=== PATIENT | male | born 1940 | race Caucasian/White ===

== ENCOUNTER 2017-06-23 16:09 | Emergency (ER) | payer OTHER ==
[~2017-06-23] VITALS: Ht 167.6 cm; Wt 85.0 kg
[2017-06-23] MEDS ORDERED: LOSA50TA PO (16:24)
[2017-06-23] MEDS ORDERED: ATOR20TA15 PO (16:24)
[2017-06-23] MEDS ORDERED: RANI150T PO (16:24)
[2017-06-23] MEDS ORDERED: ASPI81CH37 CHEW (16:24)
[2017-06-23] MEDS ORDERED: CITA20TA4 PO (16:24)
[2017-06-23 16:25] VITALS: BP 209/93; PULSE 64; RESP 16; TEMP 98.7; O2SAT 96
--- NOTE | 2017-06-23 16:44 | PD ---
HPI Chief Complaint: Laceration/Skin Injury Time Seen by Provider: 16:28 Travel History International Travel<30 days: No Contact w/Intl Traveler<30days: No Traveled to known affect area: No History of Present Illness HPI Patient is a 68-year-old male presents emergency department after a fall on outstretched hand leaving the laceration of his right palm. Patient states she was helping at the boat ramp and slipped on the wet dock and lost his footing and fell forward. States he's had a laceration of his right palm. He was told by his friends that he should rinse it in salt water. So he dipped it in the ocean prior to arrival to try and clean. On arrival the patient not complaining of any finger weakness no numbness no tingling. He appears well in no obvious distress. Denies any injury to his head neck back chest abdomen or pelvis. PFSH Past Medical History Anxiety: Yes Depression: Yes High Cholesterol: Yes Diminished Hearing: No GERD: Yes Hypertension: Yes Tetanus Vaccination: Unknown Influenza Vaccination: Yes ?: Not Past Surgical History Other Surgery: Yes (hernia repair) Social History Alcohol Use: Yes (3-4 a day) Tobacco Use: No Allergies-Medications (Allergen,Severity, Reaction): Coded Allergies: clindamycin (Verified Allergy, Severe, 06/23/17) Penicillins (Verified Allergy, Unknown, 06/23/17) Reported Meds & Prescriptions Reported Meds & Active Scripts Active Epipen 2-Kenneth Inj (Epinephrine) 0.3 Mg/0.3 Ml Pfpen 0.3 Mg IM ONCE PRN Zantac (Ranitidine HCl) 150 Mg Tab 150 Mg PO BID Prednisone 50 Mg Tab 50 Mg PO DAILY Levofloxacin 750 Mg Tablet 750 Mg PO DAILY 10 Days [place] (Hydrocodone-Acetaminophen) 5-325 mg Tab 1 Tab PO Q6H PRN Doxycycline Hyclate 100 Mg Cap 100 Mg PO BID 10 Days Reported Losartan (Losartan Potassium) 50 Mg Tab 50 Mg PO DAILY Atorvastatin (Atorvastatin Calcium) 20 Mg Tab 20 Mg PO HS Ranitidine (Ranitidine HCl) 150 Mg Tab 150 Mg PO BID Citalopram (Citalopram Hydrobromide) 20 Mg Tab 20 Mg PO DAILY Aspirin Low Dose (Aspirin) 81 Mg Chew 81 Mg CHEW DAILY Review of Systems Except as stated in HPI: all other systems reviewed are Neg Physical Exam Narrative GENERAL: Well-developed well-nourished no obvious distress SKIN: Focused skin assessment warm/dry. There is a Y-shaped laceration over the patient's right thenar eminence, appears to be total length of approximately 5 cm. Muscle bellies exposed but no tendons. Multiple foreign bodies were removed. HEAD: Atraumatic. Normocephalic. EYES: Pupils equal and round. No scleral icterus. No injection or drainage. ENT: No nasal bleeding or discharge. Mucous membranes pink and moist. NECK: Trachea midline. No JVD. CARDIOVASCULAR: Regular rate and rhythm. No murmur appreciated. RESPIRATORY: No accessory muscle use. Clear to auscultation. Breath sounds equal bilaterally. GASTROINTESTINAL: Abdomen soft, non-tender, nondistended. Hepatic and splenic margins not palpable. MUSCULOSKELETAL: No obvious deformities. No clubbing. No cyanosis. No edema. Cap refill is brisk in all 5 digits of the right hand, flexor and extensor tendons are intact at the PIP and DIP joints as well as flexion extension abduction and adduction opposition of thumb. Wrist is nontender, no midline CT or L-spine tenderness NEUROLOGICAL: Awake and alert. No obvious cranial nerve deficits. Motor grossly within normal limits. Normal speech. PSYCHIATRIC: Appropriate mood and affect; insight and judgment normal. Data Data Last Documented VS Vital Signs Date Time Temp Pulse Resp B/P (MAP) Pulse Ox O2 Delivery O2 Flow Rate FiO2 06/23/17 22:47 62 18 180/88 (118) 99 Room Air 06/23/17 16:25 98.7 Orders Orders Elre-Pis-Turiyi (Booster) Inj (Boostrix (06/23/17 16:45) Lidocaine 1% Inj (50 Ml) (Xylocaine 1% I (06/23/17 16:45) Hand, Complete ([id number]) (06/23/17 ) Clindamycin Inj (Cleocin Inj) (06/23/17 17:15) Levofloxacin (Levaquin) (06/23/17 17:15) Doxycycline (Vibramycin) (06/23/17 17:15) Iv Access Insert/Monitor (06/23/17 17:09) Support Splint (06/23/17 17:46) Fiberglass Splint Forearm Adul (06/23/17 ) Ecg Monitoring (06/23/17 19:43) Oximetry (06/23/17 19:43) Diphenhydramine Inj (Benadryl Inj) (06/23/17 19:45) Methylprednisolone So Succ Inj (Solumedr (06/23/17 19:45) Famotidine Inj (Pepcid Inj) (06/23/17 19:45) Sodium Chloride 0.9% Flush (Ns Flush) (06/23/17 19:45) Ketorolac Inj (Toradol Inj) (06/23/17 20:45) MDM Medical Decision Making Medical Screen Exam Complete: Yes Emergency Medical Condition: Yes Differential Diagnosis Laceration, salt water exposure, retained foreign body, wrist fracture. Narrative Course Patient roomed emergency department, irrigated copiously, will be started on multiple antibiotics. Patient's wound was approximated by Estela Duggan, close enough to provide good healing and good function in the future and loosely enough to have some drainage. Patient will be placed in a wrist Velcro splint discharged home with instructions to follow-up with primary care physician and discussed signs symptoms of infection that should prompt emergent return to the ER. Diagnosis Primary Impression: Laceration of palm Med/Other Pt SpecificInfo: Prescription(s) given Scripts Epinephrine Inj (Epipen 2-Kenneth Inj) 0.3 Mg/0.3 Ml Pfpen 0.3 MG IM ONCE Y for ALLERGIC REACTION, #1 PACK 0 Refills Prov: Selene Chisholm MD 06/23/17 Ranitidine (Zantac) 150 Mg Tab 150 MG PO BID for Reduce Stomach Acid, #15 TAB 0 Refills Prov: Selene Chisholm MD 06/23/17 Prednisone (Prednisone) 50 Mg Tab 50 MG PO DAILY, #4 TAB 0 Refills Prov: Selene Chisholm MD 06/23/17 Levofloxacin (Levofloxacin) 750 Mg Tablet 750 MG PO DAILY for Infection for 10 Days, TAB 0 Refills Prov: Gurpreet Vazquez MD 06/23/17 Hydrocodone-Acetaminophen ([place]) 5-325 mg Tab 1 TAB PO Q6H Y for PAIN, #15 TAB 0 Refills Prov: Gurpreet Vazuqez MD 06/23/17 Doxycycline Hyclate (Doxycycline Hyclate) 100 Mg Cap 100 MG PO BID for Infection for 10 Days, CAP 0 Refills Prov: Gurpreet Vazquez MD 06/23/17 Disposition: 01 DISCHARGE HOME Condition: Stable Gurpreet Vazquez MD Jun 23, 2017 16:44
[2017-06-23] MEDS ORDERED: DIPHTH/TETANUS/ACEL PERTUSSIS (BOOSTER) 0.5 ML VIAL/PFS IM ONE (16:45)
[2017-06-23] MEDS ORDERED: LIDOCAINE HCL 1% 50 ML VIAL INFIL ONE (16:45)
--- NOTE | 2017-06-23 16:54 | RADRPT ---
EXAM DATE/TIME: 06/23/2017 16:39 [facility] COMPARISON: No previous studies available for comparison. INDICATIONS : Laceration and pain in hand. MEDICAL HISTORY : None. SURGICAL HISTORY : None. ENCOUNTER: Initial ACUITY: 1 day PAIN SCORE: 5/10 LOCATION: Right upper extremity Hand FINDINGS: Multiple radiopaque densities are present overlapping the second and third carpometacarpal junction m ost of them appear to be in the soft tissues. There is also a wire-like radiopaque density seen on th e lateral projection volarly at the level of the metacarpophalangeal joints of the second digit. 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 No definite fractures, dislocations, lytic, or sclerotic lesions are seen. CONCLUSION: Multiple radiopaque metallic densities and no acute fracture. Krystal Maciel MD on June 23, 2017 at 16:51 Board Certified Radiologist. This report was verified electronically.
[2017-06-23] MEDS ORDERED: DOXYCYCLINE HYCLATE 100 MG CAP PO ONE (17:15)
[2017-06-23] MEDS ORDERED: CLINDAMYCIN INJ 900 MG in SODIUM CHLORIDE 0.9% INJ 100 ML IV ONE (17:15)
[2017-06-23] MEDS ORDERED: LEVOFLOXACIN 750 MG TAB PO ONE (17:15)
[2017-06-23] MEDS ORDERED: LEVO750T3 PO (17:46)
[2017-06-23] MEDS ORDERED: NORC5TAB PO (17:46)
[2017-06-23] MEDS ORDERED: CLIN1CAP5 PO (17:46)
[2017-06-23] MEDS ORDERED: DOXY100C PO (17:46)
--- NOTE | 2017-06-23 18:55 | PD ---
Physical Exam Time Seen by Provider: 17:[address] Vazquez asked me to perform laceration repair to the right hand. Please see his full H&P for details of patient's visit. Patient had approximately 7 cm irregular shaped flap laceration to the palm of the right hand. There was no tendon or vascular injury identified. Patient had full range of motion and normal sensation within the hand and digits. The wound was moderately contaminated and was extensively cleaned, irrigated, debrided, numerous foreign bodies removed prior to closure. The risk of infection for this type of wound was discussed in detail with patient and family. Due to the gaping wound edges it was agreed upon by myself and my attending physician that loosely approximating wound edges would provide best possible outcome for this type of wound. The patient and family agreed to this plan. They agree to close follow-up and adherence to the prophylactic antibiotic regimen. LACERATION LOCATION: Right hand LENGTH: Approximately 7 cm irregularly shaped wound NUMBER OF STITCHES/SYDNEY: 11 REPAIR: The area of the laceration was prepped with Betadine and sterilely draped. The laceration was infiltrated with 1% lidocaine to the laceration as well as a wrist block. The wound was copiously irrigated and explored without evidence of foreign body, tendon injury or neurovascular injury. The wound was closed using 4-0 Prolene. This was a single layer repair. A sterile dressing was applied. The patient was advised to keep the dressing clean and dry. Patient tolerated the procedure well. Data Data Last Documented VS Vital Signs Date Time Temp Pulse Resp B/P Pulse Ox O2 Delivery O2 Flow Rate FiO2 06/23/17 16:25 98.7 64 16 209/93 96 Orders Jtec-Exl-Wzmsij (Booster) Inj (Boostrix (06/23/17 16:45) Lidocaine 1% Inj (50 Ml) (Xylocaine 1% I (06/23/17 16:45) Hand, Complete ([id number]) (06/23/17 ) Clindamycin Inj (Cleocin Inj) (06/23/17 17:15) Levofloxacin (Levaquin) (06/23/17 17:15) Doxycycline (Vibramycin) (06/23/17 17:15) Iv Access Insert/Monitor (06/23/17 17:09) Support Splint (06/23/17 17:46) MDM Supervised Visit with MIRIAM: Yes Diagnosis Primary Impression: Laceration of palm Scripts Levofloxacin 750 Mg [id number] Mg PO DAILY 10 Days Ref 0 Prov:Gurpreet Vazquez MD 06/23/17 Clindamycin 150 Mg [id number] Mg PO Q6H 10 Days Ref 0 Prov:Gurpreet Vazquez MD 06/23/17 Hydrocodone-Acetaminophen ([place])5-325 mg Tab1 Tab PO Q6H PRN (PAIN) #15 TAB Ref 0 Prov:Gurpreet Vazquez MD 06/23/17 Doxycycline Hyclate 100 Mg [id number] Mg PO BID 10 Days Ref 0 Prov:Gurpreet Vazquez MD 06/23/17 Disposition: 01 DISCHARGE HOME Condition: Stable Estela Duggan Jun 23, 2017 18:55
[2017-06-23] MEDS ORDERED: methylPREDNISolone SOD SUCC 125 MG/2 ML VIAL IVP ONE (19:45)
[2017-06-23] MEDS ORDERED: SODIUM CHLORIDE 0.9% FLUSH 10 ML FLUSH IV FLUSH PRN (19:45)
[2017-06-23] MEDS ORDERED: diphenhydrAMINE HCL 50 MG/ML VIAL IVP ONE (19:45)
[2017-06-23] MEDS ORDERED: FAMOTIDINE 20 MG/2 ML VIAL IV PUSH ONE (19:45)
--- NOTE | 2017-06-23 19:55 | PD ---
Physical Exam Date Seen by Provider: Jun 23, 2017 Time Seen by Provider: 19:50 Narrative GENERAL: Well-developed well-nourished male in no acute distress no respiratory distress without stridor or hoarseness. SKIN: Warm and dry. No urticaria. HEAD: Normocephalic. EYES: No scleral icterus. No injection or drainage. ENT: Patient with some soft tissue swelling to the left aspect of the face just lateral to the mouth without angioedema of the lips, is noted to have sublingual edema without any visible tongue swelling, airway is patent. NECK: Supple, trachea midline. No JVD or lymphadenopathy. CARDIOVASCULAR: Regular rate and rhythm without murmurs, gallops, or rubs. RESPIRATORY: Breath sounds equal bilaterally. No accessory muscle use. Clear to auscultation no wheezing. GASTROINTESTINAL: Abdomen soft, non-tender, nondistended. MUSCULOSKELETAL: No cyanosis, or edema. Laceration repair to the right thenar eminence. BACK: Nontender without obvious deformity. No CVA tenderness. Data Data Last Documented VS Vital Signs Date Time Temp Pulse Resp B/P Pulse Ox O2 Delivery O2 Flow Rate FiO2 06/23/17 22:47 62 18 180/88 99 Room Air 06/23/17 16:25 98.7 Orders Pdxr-Rut-Ndgauq (Booster) Inj (Boostrix (06/23/17 16:45) Lidocaine 1% Inj (50 Ml) (Xylocaine 1% I (06/23/17 16:45) Hand, Complete ([id number]) (06/23/17 ) Clindamycin Inj (Cleocin Inj) (06/23/17 17:15) Levofloxacin (Levaquin) (06/23/17 17:15) Doxycycline (Vibramycin) (06/23/17 17:15) Iv Access Insert/Monitor (06/23/17 17:09) Support Splint (06/23/17 17:46) Fiberglass Splint Forearm Adul (06/23/17 ) Ecg Monitoring (06/23/17 19:43) Oximetry (06/23/17 19:43) Diphenhydramine Inj (Benadryl Inj) (06/23/17 19:45) Methylprednisolone So Succ Inj (Solumedr (06/23/17 19:45) Famotidine Inj (Pepcid Inj) (06/23/17 19:45) Sodium Chloride 0.9% Flush (Ns Flush) (06/23/17 19:45) Ketorolac Inj (Toradol Inj) (06/23/17 20:45) [facility] Medical Record Reviewed: Yes Supervised Visit with MIRIAM: No Differential Diagnosis Please refer to Dr. Vazquez's dictation Narrative Course Please refer to Dr. Vazquez's dictation Asked by nursing staff to administer Benadryl to the patient as he had developed left facial swelling shortly after the initiation of IV clindamycin. The IV clindamycin was stopped immediately. Upon my evaluation of the patient he reports that the facial swelling has decreased and the sensation of swelling beneath his tongue has decreased. Patient denies any difficulty breathing or swallowing. Patient denies any wheezing. No prior history of allergic reaction denies YOVANY inhibitor but does take an ARB medication for blood pressure management. The patient also complains of right palm pain where he recently had laceration repair performed. On physical exam patient does have some mild swelling of the left face just lateral to the mouth and on intraoral inspection airway is patent time does not appear swollen but there is some subglossal edema without any evidence of angioedema of the lips. There is no stridor or hoarseness lung sounds are clear. Patient ordered Benadryl 25 mg IV Pepcid 20 mg IV and Solu-Medrol 125 mg IV patient will be placed on concession supervisor pulse oximetry and vital signs to be repeated. Prescription for oral clindamycin cancelled. At 10:15 PM patient is clinically improved; have discussed with patient observation and patient does not want to be admitted to the hospital for ongoing observation for allergic reaction to clindamycin as he still has some residual sublingual angioedema. Pain well controlled with Toradol. As patient is clinically improved taking oral hydration well no difficulty with swallowing no respiratory symptoms and patient has declined observation admission will discharge with prescription for prednisone 50 mg daily for 4 days along with EpiPen to be administered as needed for any recurrence of symptoms clindamycin has been canceled and the prescription has been discarded patient is encouraged to be aware that he is allergic to clindamycin and do not take this medication in the future he is also continuing Zantac 150 twice daily for 7 days as well as Benadryl 25-50 mg every 4-6 hours for allergic symptoms. Diagnosis Primary Impression: Laceration of palm Additional Impressions: Acute allergic reaction Qualified Code: T78.40XA - Acute allergic reaction, initial encounter Angioedema Qualified Code: T78.3XXA - Angioedema, initial encounter Referrals: Yasmany Ellis MD (PCP) as needed Patient Instructions: General Instructions, Laceration (ED) Departure Forms: Tests/Procedures Additional Instruction: Avoid hot foods and beverages Complete course of steroid as prescribed Take Zantac 150 twice daily for 7 days Take Benadryl 25-50 mg as often as every 4-6 hours as needed for allergic symptoms; or may use zyrtec 10 mg daily per package directions Increase fluid hydration Complete course of antibiotics as prescribed Be aware you are allergic to clindamycin do not take this antibiotic in the future Follow-up with your primary care provider Return to the emergency department for any concerns or change in condition Wound check at 2 days suture removal at 7-10 days Scripts Epinephrine Inj (Epipen 2-Kenneth Inj)0.3 Mg/0.3 Ml Pfpen0.3 Mg IM ONCE PRN ( ALLERGIC REACTION) #1 PACK Ref 0 Prov:Selene Chisholm MD 06/23/17 Ranitidine (Zantac)150 Mg [id number] Mg PO BID #15 TAB Ref 0 Prov:Selene Chisholm MD 06/23/17 Prednisone 50 Mg Tab50 Mg PO DAILY #4 TAB Ref 0 Prov:Selene Chisholm MD 06/23/17 Levofloxacin 750 Mg [id number] Mg PO DAILY 10 Days Ref 0 Prov:Gurpreet Vazquez MD 06/23/17 Hydrocodone-Acetaminophen ([place])5-325 mg Tab1 Tab PO Q6H PRN (PAIN) #15 TAB Ref 0 Prov:Gurpreet Vazquez MD 06/23/17 Doxycycline Hyclate 100 Mg [id number] Mg PO BID 10 Days Ref 0 Prov:Gurpreet Vazquez MD 06/23/17 Disposition: 01 DISCHARGE HOME Condition: Stable Selene Chisholm MD Jun 23, 2017 19:55
[2017-06-23 20:23] VITALS: O2SAT 96
[2017-06-23 20:24] VITALS: BP 199/73; PULSE 58; RESP 18; O2SAT 96
[2017-06-23] MEDS ORDERED: KETOROLAC TROMETHAMINE 30 MG/ML (IVP) VIAL IV PUSH ONE (20:45)
[2017-06-23 21:35] VITALS: BP 185/84; PULSE 54; RESP 18; O2SAT 98
[2017-06-23] MEDS ORDERED: PRED50 PO (22:20)
[2017-06-23] MEDS ORDERED: ZANT150T2 PO (22:20)
[2017-06-23] MEDS ORDERED: EPIP0.3I IM (22:21)
[2017-06-23 22:47] VITALS: BP 180/88; PULSE 62; RESP 18; O2SAT 99
== END 2017-06-23 22:59 | disposition home or self-care (01) ==
LOC: PHED 16:09
DX: S61.421A Laceration with foreign body of right hand, initial encounter (principal); T78.3XXA Angioneurotic edema, initial encounter; W01.0XXA Fall on same level from slipping, tripping and stumbling without subsequent striking against object, initial encounter; Y92.89 Other specified places as the place of occurrence of the external cause; Z23 Encounter for immunization
CPT/HCPCS: 12042; 73130; 90471; 90715; 96374; 96375; 99284; J1200; J1885; J2930; 12032